=== PATIENT | female | born 1955 | race Caucasian/White ===

== ENCOUNTER 2024-04-13 01:41 | Day surgery (SDC) | payer MEDICARE, SELFPAY ==
[2024-03-31 13:17] VITALS: BMI 34.1
--- NOTE | 2024-03-31 13:31 | PC.NURSE ---
Report to the Outpatient Waiting Room, entrance under the green pavilion located off [facility], at time _11:30am on date __04/13/24 . Planned Procedure Time: 1:30pm .? Time changes happen often and if your time is changed the preop area will call you the afternoon before. - You and your visitor will be asked to self-screen and do not enter if you have any COVID symptoms. Please call surgeon if you need to reschedule. - A mask is optional within the hospital at this time. Patients may have clear liquids (water, carbonated beverages, clear teas, apple juice) until 3 hours prior to surgery with a maximum of 20 ounces. - No food from midnight until time of surgery and no smoking. This includes no chewing gum, candy or mints.(1030am) Take only the following medications with a SIP of water on the morning of surgery: __Levothyroxine DO NOT STOP ANY OF YOUR OTHER PRESCRIPTION MEDICATIONS PRIOR TO SURGERY EXCEPT THE FOLLOWING Medications to discontinue per physician Check w Dr Richardson regarding the Celebrex and if ok to cont. Please no make-up, nail english, hairspray, perfume, deodorant, or body powder the day of surgery.? No jewelry (including any body piercings) or valuables the day of surgery, leave them at home.? Please take a shower or bath the night before, or the morning of, surgery with an antibacterial soap.? Wear comfortable, loose fitting clothing.? - Jewelry must be removed prior to entering the operating room.? Rings and piercings that are not removed may be cut off. - The hospital will not accept responsibility for valuables.? - Please leave all valuables, including medications, at home the day of surgery. If you are going home after surgery, a licensed sprinkler truck driver must drive you home.? - NO public transportation without another adult if you receive anesthesia. - We recommend that an adult stay with you for 24 hours following discharge. - We also recommend that you do not drive, make important decision, drink alcoholic beverages, or take any drugs that were not prescribed by your health care provider for at least 24 hours after your discharge time. Hold all vitamins and supplements for 3 days per anesthesiologist.Date to take last dose is 04/09/24. Follow any additional instructions given to you from your surgeon. Telephone instructions given to __Patient and asked if any additional questions and then verbalized understanding. Patient advised to call surgeon office or pre surgery nurse liaison [phone] if any additional questions.
--- NOTE | 2024-04-11 15:15 | PM.IMHP ---
H&P: HPI History of Present Illness Date/Time: 04/11/24 15:15 Chief Complaint: urge incontinence Narrative: InterStim device is at end of service. Here today for removal and replacement so that she can have a new battery in an MRI compatible device Review of Systems Review of Systems: All systems reviewed & are unremarkable except as noted in HPI and below PMFSH Past Medical History Medical History Urinary frequency Wears glasses Vertigo History of anesthesia problem Exostosis of left posterior calcaneus Achilles tendinitis of left lower extremity Surgical History Surgical History History of ankle surgery Leg and ankle in 2012 per patient History of back surgery History of weight loss surgery H/O shoulder surgery Left History of cholecystectomy History of hysterectomy Social History Social History Smoking packs per day: 0.2 Smoking cigarettes per day: 4.0 Years smoked: 30 Smoking pack-years: 6.00 Smoking status: Former smoker Tobacco type: cigarettes Smoking end date: 03/04/04 Alcohol intake: current Drinks per week: 1 Alcohol use details: 1 per month Substance use: never Substance use type: does not use Living arrangements: alone Occupation/Education: retired Gender identity (if verbalized by the patient): Female Spiritual care concerns: No Meds Home Medications and Allergies Home Medications ?Medication ?Instructions ?Recorded ?Confirmed ?Type Bifidobacterium infantis 10.5 mg 10.5 mg PO DAILY 03/31/24 03/31/24 History (10 million cell) chewable tablet (Align Jr) celecoxib 200 mg capsule 200 mg PO Q12H 03/31/24 03/31/24 History levothyroxine 25 mcg tablet 25 mcg PO DAILY 03/31/24 03/31/24 History oxybutynin chloride 10 mg 10 mg PO DAILY 03/31/24 03/31/24 History tablet,extended release 24 hr ropinirole 0.5 mg tablet 0.5 mg PO HS 03/31/24 03/31/24 History Allergies Allergy/AdvReac Type Severity Reaction Status Date / Time No Known Allergies Allergy Verified 03/31/24 13:11 Exam Narrative: no acute distress normal breathing alert and oriented x3 Assessment and Plan Assessment and plan (1) Urge incontinence: Code(s): N39.41 - Urge incontinence Status: Acute Assessment and Plan: remove and replace neurostimulator device Plan urge incontinence
--- NOTE | ~2024-04-13 | XR_ITS ---
EXAMINATION: XR fluoroscopy no charge DATE: 04/13/2024 14:55 INDICATION: Removal and replacement of neurostimulator implant. TECHNIQUE: 2 fluoroscopic images of the sacrum were obtained during procedure performed by Dr. Nirav reid. Radiologist was not present for the imaging or procedure. The amount of fluoroscopy time used duri ng this procedure was 2.9 minutes. Total DAP was 37.01 Gycm^2. COMPARISON: None. FINDINGS: Images demonstrate neurostimulator be extending through S3 neural foramen, likely left-sided however markers are not provided confirming laterality. Lap sponge markers project over the soft tissues post erior to the sacrum. IMPRESSION: 1. Expected appearance during sacral nerve root stimulator lead placement. See procedure note for fur ther detail. Reviewed, dictated and finalized at location A. CTURAL ENGINEERING TECHNICIAN IMPRESSION: 1. Expected appearance during sacral nerve root stimulator lead placement. See procedure note for further detail.
--- OUTSIDE RECORDS SUMMARY | 2024-04-13 01:47 | XMS_ITS | Referral Summary ---
Author Organization [facility] Address [address] [place] [id number] Care Team Providers Care Vehicle Mechanic Name Role Phone Nancy Vincent DO Primary Care Provider Fred lowery Allergies No known active allergies Medications Medication Sig Dispensed Refills Start Date End Date Status B-Complex Tab Take 1 tablet by mouth daily. Active auxjtijzjnpd-hzsu-draa rals-folic acid (CENTRUM) chewable tablet Chew 1 tablet by mouth daily. Active Lactobacillus (ACIDOPHILUS) Tab USE DIRECTED Ac tive levothyroxine (SYNTHROID, LEVOTHROID) 25 MCG tabletIndications:Acqu ired hypothyroidism Take 1 tablet by mouth daily. 90 tablet 09/22/2018 Active rOPINIRole (REQUIP) 0.5 MG tablet TAKE 1 TABLET EVERY NIGHT 90 tablet 3 12/11/2018 Active omeprazole (PRILOSEC) 20 MG capsuleIndications:Gas troesophageal reflux disease, esophagitis presence not specified Take 1 capsule by mouth daily. 90 capsule 3 08/17/2019 Active meloxicam (MOBIC) 7.5 MG tablet TAKE 1 TABLET EVERY DAY 60 tablet 08/31/2019 Active Active Problems Problem Noted Date Diagnosed Date Non-toxic multinodular goiter 07/01/2018 Obesity (BMI 30-39.9) 07/01/2018 Infrequent bowel movements 03/24/2018 Assessment & Plan (03/24/2018 10:53 AM CONTACT LENS FITTER): Patient may add fiber supplement to her diet to increase frequency of stools. However due to the patient's description of her stool caliber, she seems to be stable with her current bowel regimen. Follow up as needed. 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 Referral sent to gastroneurology. Follow-up as needed. Ingrown toenail 01/27/2018 Assessment & Plan (03/24/2018 10:54 AM CONTACT LENS FITTER): Continue follow-up with podiatry as needed. Segmental and somatic dysfunction of upper extre mity 01/27/2018 Segmental and somatic dysfunction of thoracic re gion 01/27/2018 Seborrheic keratosis 01/13/2018 Gastric ulcer 04/25/2017 Urinary disorder 04/25/2017 Overview (03/24/2018): urogenic bladder, urinary stimulator in place Assessment & Plan (03/24/2018 10:54 AM CONTACT LENS FITTER): Continue follow-up with urologist. Periodic limb movement 04/25/2016 Eczema 03/19/2016 Seasonal allergies 03/19/2016 Acquired hypothyroidism 03/06/2016 Assessment & Plan (03/24/2018 10:54 AM CONTACT LENS FITTER): Patient will be due for thyroid labs at her next visit. Hypothyroidism stable at this time. Unsteady gait 06/01/2014 Arthritis 03/16/2014 Depression 03/09/2014 Paresthesia of right arm and leg 03/09/2014 Traumatic brain injury (CMD) 03/09/2014 Immunizations Name Administration Dates Next Due Influenza, split virus, quadrivalent, PF 018,12/12/2016 Influenza, split virus, trivalent 12/12/2016,,12/24/2014 Influenza, split virus, trivalent, PF 11/29/2015 ,12/24/2014 Influenza, unspecified formulation 12/16/2017 Pneumococcal Polysaccharide PPV23 11/06/2012 Tdap 08/22/2012 Social History Tobacco Use Types Packs/Day Years Used Date Smoking Tobacco: Former Cigarettes Q uit: 03/24/1998 Smokeless Tobacco: Never Alcohol Use Standard Drinks/Week Comments Yes 0 (1 standard drink = 0.6 oz pur e alcohol) occasionally PHQ-2 Answer Date Recorded PHQ-2 Score 0 03/24/2018 Inadequate Housing Answer Date Recorded Social Determinants: Housing (Overall Score Help er) 0 10/15/2018 Sex and Gender Information Value Date Recorded Sex Assigned at Not on file Gender Identity Not on file Sexual Orientation Not on file Last Filed Vital Signs Vital Sign Reading Time Taken Comments Blood Pressure 165/77 07/01/2018 10:59 AM CDT Pulse 62 07/01/2018 10:59 AM CDT Temperature 36.2 C (97.2 F) 03/24/2018 10:01 AM CONTACT LENS FITTER Respiratory Rate 20 03/24/2018 10:01 AM CONTACT LENS FITTER Oxygen Saturation 97% 03/24/2018 10:01 AM CONTACT LENS FITTER Inhaled Oxygen Concentration - - Weight 100.7 kg (222 lb) 07/01/2018 10:59 AM CDT Height 167.6 cm (5' 6 ) 07/01/2018 10:59 AM CDT Body Mass Index 35.83 07/01/2018 10:59 AM CDT Plan of Treatment Not on file Procedures Procedure Name Priority Date/Time Associated Diagnosis Comments MAMMO SCREENING BILATERAL Routine 02/06/2018 from Last 3 Months or Most Recently Relevant to Health Maintenance Results * Mammo Screening Bilateral (02/06/2018) Anatomical Region Laterality Modality Breast Bilateral Other Nancy Vincent DO MAMMOGRAPHY from Last 3 Months or Most Recently Relevant to Health Maintenance Care Teams Vehicle Mechanic Relationship Specialty Start Date End Date Nancy Vincent DO PCP - General 01/25/18
--- OUTSIDE RECORDS SUMMARY | 2024-04-13 01:48 | XMS_ITS | Clinical Summary ---
Author Organization [facility] Address [address] [place] [id number] Care Team Providers Care Healthcare Market Consultant Name Role Phone Nancy Vincent DO Primary Care Provider Fred lowery Allergies No known active allergies Medications Medication Sig Dispensed Refills Start Date End Date Status B-Complex Tab Take 1 tablet by mouth daily. Active ehfztqohnsxa-hkxm-xmou rals-folic acid (CENTRUM) chewable tablet Chew 1 [...] 03/24/2018 Assessment & Plan (03/24/2018 10:53 AM BOOTH OPERATOR): Patient may add fiber supplement to her diet to increase frequency of stools. However due to the patient's description of her stool caliber, she seems to be stable with her current bowel regimen. Follow up as needed. 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 Referral sent to gastroneurology. Follow-up as needed. Ingrown toenail 01/27/2018 Assessment & Plan (03/24/2018 10:54 AM BOOTH OPERATOR): Continue follow-up with podiatry as needed. Segmental and somatic dysfunction of upper extre mity 01/27/2018 Segmental and somatic dysfunction of thoracic re gion 01/27/2018 Seborrheic keratosis 01/13/2018 Gastric ulcer 04/25/2017 Urinary disorder 04/25/2017 Overview (03/24/2018): urogenic bladder, urinary stimulator in place Assessment & Plan (03/24/2018 10:54 AM BOOTH OPERATOR): Continue follow-up with urologist. Periodic limb movement 04/25/2016 Eczema 03/19/2016 Seasonal allergies 03/19/2016 Acquired hypothyroidism 03/06/2016 Assessment & Plan (03/24/2018 10:54 AM BOOTH OPERATOR): Patient will be due for thyroid labs [...] on file Sexual Orientation Not on file Obstetrics History Last Filed Vital Signs Vital Sign Reading Time Taken Comments Blood Pressure 165/77 07/01/2018 10:59 AM CDT Pulse 62 07/01/2018 10:59 AM CDT Temperature 36.2 C (97.2 F) 03/24/2018 10:01 AM BOOTH OPERATOR Respiratory Rate 20 03/24/2018 10:01 AM BOOTH OPERATOR Oxygen Saturation 97% 03/24/2018 10:01 AM BOOTH OPERATOR Inhaled Oxygen Concentration - - Weight 100.7 kg (222 lb) 07/01/2018 10:59 AM CDT Height 167.6 cm (5' 6 ) 07/01/2018 10:59 AM CDT Body Mass Index 35.83 07/01/2018 10:59 AM CDT Plan of Treatment Health Maintenance Due Date Last Done Comments CT Colonography 1998 Cologuard 1998 Colonoscopy 1998 Colorectal Cancer Screen 1998 Fecal Occult Blood 1998 Sigmoidoscopy 1998 Shingles Vaccine (1 of 2) 10/30/2003 Pneumococcal Vaccine 50+ (2 of 2 - PCV) 11/06/2013 11/06/2012 Osteoporosis Screening 2018 Breast Cancer Screening 02/07/2020 02/06/2018 DTaP/Tdap/Td Vaccine (2 - Td or Tdap) 08/22/2022 08/22/2012 COVID-19 Vaccine ( season) 2023 Influenza Vaccine (#1) 2023 8, 12/02/2017, 12/12/2016, Additional history exists Medicare Advantage- Medicare Wellness Visit 03/04/2024 Respiratory Syncytial Virus (RSV) Vaccine 60+ (1 - 1-dose 75+ series) 2028 HPV Vaccine Aged Out No longer eligi ble based on patient's age to complete this topic Hepatitis A Vaccine Aged Out No longe r eligible based on patient's age to complete this topic Hepatitis B Vaccine (For Physician/APC Discussion) Aged Out No longer elig ible based on patient's age to complete this topic Meningococcal Serogroup B Vaccine Aged Out No longer eligible based on patient's age to complete this topic Meningococcal Vaccine Aged Out No blanka jessa eligible based on patient's age to complete this topic Procedures Procedure Name Priority Date/Time Associated Diagnosis Comments MAMMO SCREENING BILATERAL Routine 02/06/2018 from Last 3 Months or Most Recently Relevant to Health Maintenance Results * Mammo Screening Bilateral (02/06/2018) Anatomical Region Laterality Modality Breast Bilateral Other Nancy Vincent DO MAMMOGRAPHY from Last 3 Months or Most Recently Relevant to Health Maintenance Care Teams Healthcare Market Consultant Relationship Specialty Start Date End Date Nancy Vincent DO PCP - General 01/25/18
--- NOTE | 2024-04-13 04:36 | WPDHPUPDATE1 ---
History and Physical Update Update Date/Time: 04/13/24 04:36 History and Physical has been reviewed, including an updated exam of the patient. There are NO changes in the patient's condition. Risks, benefits, and alternatives have been discussed and questions answered. Patient agrees to proceed with procedure.
[2024-04-13 11:30] VITALS: BP 157/73; PULSE 71; RESP 12; TEMP 36.2; O2SAT 100
[2024-04-13] MEDS: LACTATED RINGERS 1,000 ML 30 ML IV CONT (12:10)
[2024-04-13 12:32] VITALS: BMI 35.9
--- NOTE | 2024-04-13 13:48 | WPDANESEPPF ---
Anes - Initial Pre Proc Eval Procedure: Operation Date: 04/13/24 13:30 Proposed Procedures p Removal and Replacement Neurostimulator Implant - David Richardson MD Date/Time: 04/13/24 13:48 Surgeon: David Richardson MD Pre Op Diagnosis: Stress Incont Patient Data Age: 68 Gender: F Height: 1.68 m Weight: 100.9 kg Last Vital Signs Temp 97.1 F L 04/13/24 11:30 Pulse 71 04/13/24 11:30 Resp 12 04/13/24 11:30 BP 157/73 H 04/13/24 11:30 Pulse Ox 100 04/13/24 11:30 O2 Del Method Room Air 04/13/24 11:30 Allergies Allergy/AdvReac Type Severity Reaction Status Date / Time No Known Allergies Allergy Verified 04/13/24 11:45 Home Medications ?Medication ?Instructions ?Recorded ?Confirmed ?Type Bifidobacterium infantis 10.5 mg 10.5 mg PO DAILY 03/31/24 03/31/24 History (10 million cell) chewable tablet (Align Jr) celecoxib 200 mg capsule 200 mg PO Q12H 03/31/24 04/13/24 History levothyroxine 25 mcg tablet 25 mcg PO DAILY 03/31/24 04/13/24 History oxybutynin chloride 10 mg 10 mg PO DAILY 03/31/24 04/13/24 History tablet,extended release 24 hr ropinirole 0.5 mg tablet 0.5 mg PO HS 03/31/24 04/13/24 History Patient hx anesthesia problems: other (Pt reports that she sometimes wakes up a little goofy after GA in the past. ) Family hx anesthesia problems: none Results Review: All pre-operative results and documents have been reviewed as part of the pre-operative evaluation. [facility] Past Medical History Medical History Urinary frequency Wears glasses Vertigo History of anesthesia problem Exostosis of left posterior calcaneus Achilles tendinitis of left lower extremity Surgical History Surgical History History of ankle surgery Leg and ankle in 2012 per patient History of back surgery History of weight loss surgery H/O shoulder surgery Left History of cholecystectomy History of hysterectomy Social History Social History Smoking packs per day: 0.2 Smoking cigarettes per day: 4.0 Years smoked: 30 Smoking pack-years: 6.00 Smoking status: Former smoker Tobacco type: cigarettes Smoking end date: 03/04/04 Alcohol intake: current Drinks per week: 1 Alcohol use details: 1 per month Substance use: never Substance use type: does not use Living arrangements: alone Occupation/Education: retired Gender identity (if verbalized by the patient): Female Spiritual care concerns: No Anes - Eval Final PreProcedure Day of Procedure 04/13/24 13:48 Patient weight: obese Heart: regular rate and rhythm Lungs: clear to auscultation Airway: Mallampati scale class II Neurological: alert and oriented Last oral intake: >/= 8 hours ASA classification: II Emergent: no Anesthetic plan: proceed Anesthesia type and monitoring: general GIVS and standard monitoring Results Review: All pre-operative results and documents have been reviewed as part of the pre-operative evaluation. Hypothyroidism, BMI 35. Informed Consent: The patient's anesthetic plan and its attendant risks and benefits were discussed with the patient/family/POA. Questions were solicited and answers provided to the satisfaction of the patient/family/POA.
[2024-04-13] MEDS: ceFAZolin 2 GM/D5W 50 ML 2 GM/50 ML BAG IVPB (14:11)
[2024-04-13] MEDS: BUPIVACAINE/EPINEPHRINE 0.5% 30 ML VIAL 50 ML INFILTRATE (14:48)
[2024-04-13 15:03] VITALS: BP 108/57; PULSE 77; RESP 14; O2SAT 97
--- NOTE | 2024-04-13 15:13 | P.OP_ITS ---
Procedure Note - Detailed Date of Procedure 04/13/24 Pre-op Diagnosis Urge incontinence Post-op Diagnosis Same Procedure Performed Removal of sacral lead Placement of new sacral lead Replacement of implantable pulse generator Complex neurostimulator programming and impedance check Surgeon David Richardson MD Anesthesia MAC and Local Indications This is a woman with InterStim device in place. Her battery isn't of life. She also wants to be MRI compatible. She is here today for a full revision. Understands risks including, infection, lack of efficacy, need for revision bag changes. Agrees to proceed Description of Procedure She was correctly identified. Informed consent obtained. From the operating room. She was given monitored anesthesia care. She was placed in the prone position. Lower back and buttock prepped and draped in a sterile fashion. Time-out performed. I anesthetized the skin over the pulse generator. I incised the skin and located the pulse generator. I removed the pulse generator in its entirety. I then located the previously placed sacral lead under fluoroscopy. I anesthetized the skin. I incised the skin. I located the sacral lead and removed in its entirety I then marked out my sacral landmarks in the AP and lateral retention. I anesthetized the skin. I entered the S3 foramen multiple times on the contralateral side. I stimulated the needle got appropriate Fany and toe response at a low threshold. I made a skin moreno. I placed a stylet and the lead do sheath. I then placed a plate my lead. I was unhappy initially with the Fany and toe response specially on leads 0 and 1. I made [address] to [address] her on the patient's right side. Which was contralateral to the previously placed sacral lead. I could not get responses that I like. I placed the foramen needle on the patient's right. I got appropriate responses. I made a skin moreno. I placed the stylet and the lead to do sheath. I then placed my lead again percutaneously I again stimulated the lead and got appropriate respo nses a low threshold. I tunneled the lead towards the previously placed pocket. The new pulse generous opening programmed. Appropriate connections were made between the pulse generator and the lead. It was placed in the pocket. Impedances were checked and found to be normal. I assured hemostasis. I irrigated all wounds. I closed subcu tissues with 2-0 Vicryl. Skin with 4-0 Vicryl. Glue was applied. She was awakened transferred to PACU in stable Estimated Blood Loss 10 Packing No Pathology None sent Complications No immediate complications Condition Stable Disposition PACU
[2024-04-13 15:30] VITALS: BP 128/58; PULSE 67; RESP 16; O2SAT 98
[2024-04-13 16:00] VITALS: BP 134/90; PULSE 67; RESP 20
[2024-04-13 16:20] VITALS: BP 148/80; PULSE 70; RESP 18
== END 2024-04-13 16:32 | disposition home or self-care (01) ==
PROVIDERS: PCP Family Medicine Sports Medicine; Visit Provider Urology
PROC: (CPT 64561; principal; 2024-04-13 13:30)
DX: Z45.42 Encounter for adjustment and management of neurostimulator (principal); N39.41 Urge incontinence; R35.0 Frequency of micturition; E66.9 Obesity, unspecified; Z68.35 Body mass index [BMI] 35.0-35.9, adult; Z98.890 Other specified postprocedural states; Z98.1 Arthrodesis status; Z90.49 Acquired absence of other specified parts of digestive tract; Z87.891 Personal history of nicotine dependence
CPT/HCPCS: 64561; 64590; 99199; C1767; C1778; C1787; J0690; J1100; J2003; J2250; J2405; J2704; J3010; J7120